=== PATIENT | male | born 1960 | race Caucasian/White ===

== ENCOUNTER → 2016-12-10 | Outpatient (REF) ==
[~2016-12-10] MED LIST: NORCO 325 MG-7.1 TAB PO
[2016-12-10 11:50] LABS: THYROID STIMULATING HORMONE 0.737 uIU/mL (0.465-4.680)
[2016-12-10 12:34] LABS: PSA-TOTAL 4.28 ng/mL (0-4)
== END ==
LOC: ZLAB.WCH 10:57
PROVIDERS: Internal Medicine
DX: Z01.89 Encounter for other specified special examinations (principal)
CPT/HCPCS: G0103